=== PATIENT | female | born 1990 | race Caucasian/White ===

== ENCOUNTER 2022-02-16 14:33 | Emergency (ER) | payer OTHER ==
[~2022-02-16] VITALS: Ht 154.9 cm; Wt 72.6 kg
[2022-02-16 14:55] VITALS: BP 118/69
[2022-02-16] MEDS ORDERED: BACITRACIN OINT 500 UNITS/GM PKT TP ONE (15:55)
[2022-02-16] MEDS ORDERED: BACI1PAC6 TP (16:40)
[2022-02-16] MEDS ORDERED: IBUP-2213 PO (16:40)
[2022-02-16] MEDS ORDERED: CEPH-588 PO (16:40)
--- NOTE | 2022-02-16 17:38 | NUR ---
Patient discharged with v/s stable. Written and verbal after care instructions given. Patient alert, oriented and verbalized understanding of instructions. Ambulatory with steady gait. All questions addressed prior to discharge. ID band removed. Patient advised to follow up with PMD. Rx of given. Opportunity to ask questions provided and answered.
== END 2022-02-16 17:38 | disposition home or self-care (01) ==
LOC: MED 14:33
DX: S91.332A Puncture wound without foreign body, left foot, initial encounter (principal); R03.0 Elevated blood-pressure reading, without diagnosis of hypertension; Z88.4 Allergy status to anesthetic agent; Z88.8 Allergy status to other drugs, medicaments and biological substances; X58.XXXA Exposure to other specified factors, initial encounter; Y93.89 Activity, other specified; Y92.89 Other specified places as the place of occurrence of the external cause; Y99.8 Other external cause status
CPT/HCPCS: 90471; 90715; 99283